=== PATIENT | female | born 1970 | race Caucasian/White ===

== ENCOUNTER 2019-05-18 13:22 | Outpatient (CLI) | payer OTHER, SELFPAY ==
--- NOTE | 2019-05-18 12:07 | DI.RAD_ITS ---
EXAM: XR CERVICAL SPINE COMP 4-5V INDICATION: right hand tinglin with ROM neck R20.2 PARESTHESIA OF SKIN. COMPARISON: No exams were available for comparison TECHNIQUE: 2D digital imaging was performed. FINDINGS: The odontoid is intact. The lateral masses are well aligned. There is straightening of the normal c ervical lordosis. This may be due to muscle spasm or patient positioning. The disc heights are well maintained. Small endplate osteophytes are seen at C5-6 and C6-C7. There are degenerative changes of the facets throughout the cervical spine. The findings are most marked at C2-3, C3-C4, C5-C6 and C6-C7. There is narrowing of the neural foramen on the left at C2-3, C3-C4, and C6-C7. No acute fra cture or subluxation is seen. The prevertebral soft tissues are unremarkable. IMPRESSION: Multilevel degenerative changes in the cervical spine. If there are radicular concerns, an MRI may b e obtained for further evaluation.
== END 2019-05-18 13:42 ==
PROVIDERS: Visit Provider Nurse Practitioner Family
DX: R20.2 Paresthesia of skin (principal); M47.812 Spondylosis without myelopathy or radiculopathy, cervical region; M25.78 Osteophyte, vertebrae
CPT/HCPCS: 72050

== ENCOUNTER 2019-06-05 02:39 | Outpatient (CLI) | payer OTHER, SELFPAY ==
--- NOTE | 2019-06-05 09:30 | DI.MRI_ITS ---
EXAM: MR CERVICAL SPINE WO CLINICAL HISTORY: right upper extremity tingling related to neck ROM, R20.2 PARESTHESIA OF skin TECHNIQUE: Multiplanar multisequence MRI was performed. COMPARISON: XR CERVICAL SPINE COMP 4-5V from 05/18/2019 FINDINGS: There are prominent facet joint degenerative changes at C2-3 causing severe left neural foraminal n arrowing. Left sided facet degenerative changes also cause left neural foraminal narrowing at C3-4. T here is mild right neural foraminal narrowing at C4-5. At C5-6, there is mild loss of disc height. Th ere are broad-based endplate osteophytes. There is central disc bulging causing narrowing of the AP d imension of the central canal. There is moderate right neural foraminal narrowing. At C6-7, there are broad-based endplate osteophytes and mild concentric disc bulging. There is mild left neural foramin al narrowing and mild central canal stenosis. The cord signal appears normal. There are degenerative signal changes in the vertebral endplates at C5-6 and C6-7. The C7-T1 and T1-2 levels are unremarkabl e. IMPRESSION: Left neural foraminal narrowing secondary to facet encroachment at C2-3 and C3-4. Degenerative disc c hanges at C5-6 and C6-7 cause some narrowing of the AP dimension of the central canal as well as neur al foraminal narrowing. DATA REPOSITORY:
== END 2019-06-05 02:59 ==
PROVIDERS: Visit Provider Nurse Practitioner Family
DX: R20.2 Paresthesia of skin (principal); M47.22 Other spondylosis with radiculopathy, cervical region; M50.122 Cervical disc disorder at C5-C6 level with radiculopathy
CPT/HCPCS: 72141